=== PATIENT | male | born 1995 | race Two or more races ===

== ENCOUNTER 2022-04-20 19:56 | Emergency (ER) | payer OTHER, SELFPAY ==
[2022-04-20 19:57] VITALS: BP 111/66; PULSE 68; RESP 16; TEMP 37; O2SAT 97; BMI 18.3
--- NOTE | 2022-04-20 21:09 | CT_ITS ---
EXAM: CT ABDOMEN AND PELVIS WITH INTRAVENOUS CONTRAST CLINICAL INDICATION: abdominal pain TECHNIQUE: Helically acquired images were obtained of the abdomen and pelvis with intravenous contrast. This CT exam was performed using one or more of the following dose reduction techniques: automated exposure control, adjustment of the mA and/or kV according to patient size, and/or use of iterative reconstruction technique. This report was created using [employer] report generation technology. CONTRAST: IV 100mL Isovue-370 RADIATION DOSE: CTDIvol = 9.97, 5.08 mGy, DLP = 240.28 mGy-cm. COMPARISON: None. FINDINGS: LOWER THORAX: Unremarkable. Lung bases are clear. No cardiomegaly. No significant pericardial effusion. ABDOMEN: LIVER: Unremarkable. Homogeneous. No focal mass. GALLBLADDER AND BILE DUCTS: Unremarkable. No calcified gallstones. No gallbladder distention or wall edema. No intra- or extrahepatic biliary ductal dilation. PANCREAS: Unremarkable. No focal cystic or solid mass. SPLEEN: Unremarkable. Normal size without focal cystic or solid mass. ADRENALS: Unremarkable. No nodules. KIDNEYS AND URETERS: Unremarkable with the exception of small renal cysts bilaterally, the largest roughly 1 cm in the right posterior upper kidney, no enhancement, and tiny cortical 4 mm cyst of the left kidney. Additional imaging is not required. Normal renal size and position. No hydronephrosis. STOMACH AND BOWEL: Mildly prominent fluid-filled small bowel loops in the mid right and bilateral lower abdomen. Moderate fluid and mild gas in the stomach and duodenum with mild mucosal enhancement of the stomach and fluid-filled duodenum. Suspicion of gastroenteritis. Mild gas and stool in the colon. No significant mesenteric adenopathy. Patent mesenteric vessels. No stomach or bowel distention. PELVIS: APPENDIX: Normal gas filled appendix seen on sagittal images 45 through 55 anterior to the right psoas muscle, also seen on other series. BLADDER: Unremarkable. REPRODUCTIVE: Unremarkable as visualized. No mass. ABDOMEN and PELVIS: INTRAPERITONEAL SPACE: Unremarkable. No ascites or other fluid collection. No free air. BONES/JOINTS: Unremarkable. No suspicious lytic or blastic abnormality. SOFT TISSUES: Unremarkable. No discrete abdominal or pelvic wall hernia. VASCULATURE: Unremarkable. Abdominal aorta is non-dilated. LYMPH NODES: See above. OTHER FINDINGS: None. CT/Abdomen/Pelvis W IV Cont ONLY IMPRESSION: Suspicion of gastroenteritis. Normal appendix. Small renal cysts. Electronically Signed: Sharla Zamorano MD at 23:03 EDT ,
--- NOTE | 2022-04-20 21:28 | EX.ED.DYSGE1 ---
HPI History of Present Illness Chief Complaint: Abd Pain Informant: patient Narrative Narrative: 26-year-old male presenting to the emergency department with a 4-day history of abdominal pain. He describes it as epigastric and feels like gas. He has been trying numerous gas medications without relief. He states that food makes it worse. He denies any diarrhea or vomiting. No fevers. No prior surgeries. He states it hurts to walk. He states he is never had anything like this before. PFSH PFSH Medical History no medical history no medical history Home Medications NK 04/20/22 [History Last Taken Unknown] Allergy/AdvReac Type Severity Reaction Status Date / Time No Known Allergies Allergy Verified 04/20/22 20:00 Surgical History no surgical history no surgical history Social History (Updated 04/20/22 @ 21:[address] Mode Reed, DO) Smoking Status: Current every day smoker tobacco type: cigarettes substance use type: does not use ROS ROS ED Constitutional Constitutional ED: Denies chills or weight loss Eyes Eyes: Denies change in vision or diplopia ENT ENT ED: Denies ear pain, rhinorrhea or sore throat Cardiovascular Cardiovascular: Denies chest pain, orthopnea, palpitations or racing heartbeat Respiratory/Chest Respiratory/Chest: Denies cough, dyspnea or orthopnea Gastrointestinal Gastrointestinal: Reports abdominal pain; Denies constipation, diarrhea, melena, nausea or vomiting Genitourinary Genitourinary ED: Denies dysuria, hematuria or urinary frequency Musculoskeletal Musculoskeletal: Denies arthralgias or myalgias Integumentary Denies abscess or rash Neurologic Neurologic: Denies headache(s) or weakness Psychiatric Psychiatric: Denies anxiety, depression, suicidal ideation or suicidal thoughts Endocrine Endocrinology: Denies polydipsia, polyphagia or polyuria Allergic/Immunologic Allergic/Immunologic ED: Denies mouth swelling, tongue swelling or urticaria EXAM Physical Exam Const Vital Signs: 04/20/22 19:57 04/20/22 21:59 Temperature 98.6 F Temperature Source Temporal Pulse Rate 68 68 Respiratory Rate 16 16 Blood Pressure 111/66 141/84 H Blood Pressure Mean 81 103 Pulse Ox 97 Oxygen Delivery Method Room Air Room Air Positive well nourished and well developed General Appearance ED: well developed HEENT Reports normocephalic, head/scalp atraumatic and moist mucous membranes Eyes PERRL and EOMs intact bilaterally Neck no lymphadenopathy, supple and no JVD Resp normal respiratory effort and clear to auscultation bilaterally Cardio regular rate, regular rhythm and no murmurs GI Auscultation: normoactive bowel sounds Palpation: soft and tender epigastric; Negative for guarding, splenomegaly, mass or rebound tenderness present Back/Spine no CVA tenderness and normal ROM Extremity normal to inspection General Extremety ED: Negative for edema General Extremity: Negative for edema Neuro oriented x3 and CN's II-XII intact bilaterally Sensorium / Orientation: alert Motor Exam: strength 5/5 throughout Psych mental status grossly normal Mood & Affect: Negative for depressed or tearful Skin no rashes or lesions noted and no wounds MDM MDM MDM Narrative Medical decision making narrative: Returns at 8.2. CMP and lipase are normal. CT of the abdomen pelvis was obtained. This was read by radiology reviewed by myself and is suspicious for gastroenteritis. Patient received a GI cocktail and states it really improved his pain. Only placed him on an antacid omeprazole as well and some Bentyl. He is to establish primary care. He does live in [place] so I have some difficulty referring him to places but he states he knows of some places he can try. Lab Data Attestation: I reviewed the patient's lab results. Labs: Laboratory Results - last 24 hr 04/20/22 04/20/22 22:03 22:03 WBC 8.2 RBC 4.73 Hgb 14.2 Hct 43.1 MCV 91.1 MCH 30.0 MCHC 32.9 RDW Std Deviation 45.9 H RDW Coeff of Allyssa 13.6 Plt Count 340 MPV 9.5 Immature Gran % (Auto) 0.400 Neut % (Auto) 61.4 Lymph % (Auto) 30.0 [place] % (Auto) 5.5 Eos % (Auto) 2.1 Baso % (Auto) 0.6 Absolute Neuts (auto) 5.0 Absolute Lymphs (auto) 2.46 Nucleated RBC % 0 Sodium 143 Potassium 3.8 Chloride 109 H Carbon Dioxide 29.0 Anion Gap 5 BUN 13 Creatinine 0.94 Estim Creat Clear Calc 90.83 Est GFR (MDRD) Af Amer 122 Est GFR (MDRD) Non-Af 101 BUN/Creatinine Ratio 13.8 Glucose 88 Calcium 9.3 Total Bilirubin 0.50 AST 20 ALT 28 Alkaline Phosphatase 60 Total Protein 7.1 Albumin 3.6 Globulin 3.5 Albumin/Globulin Ratio 1.0 Lipase 122 Radiography Diagnostic Testing: Clinical Impression(s) from Imaging Studies Abdomen/Pelvis CT 04/20/22 21:09 IMPRESSION: Suspicion of gastroenteritis. Normal appendix. Small renal cysts. Electronically Signed: Sharla Zamorano MD at 23:03 EDT Reading Location ID and State: [address] [place] [address] Tel , Service support , Discharge Plan Triage Chief Complaint: Abd Pain ED Provider: Mode Reed Dx/Rx/DC Orders Clinical Impression: Abdominal pain Prescriptions: No Action NK Primary Care Provider: Care Physician,No Primary Referrals: Care Physician,No Primary [Primary Care Provider] -
[2022-04-20 21:59] VITALS: BP 141/84; PULSE 68; RESP 16
[2022-04-20] MEDS: Ondansetron 4 MG/2 ML Vial IV (22:01)
[2022-04-20 22:11] LABS: Absolute Lymphocyte Count 2.46 X10^3/uL (0.83-4.51); Basophil# 0.05 X10^3/uL; Basophil% 0.6 % (0-1); Eosinophil# 0.17 X10^3/uL; Eosinophils% 2.1 % (0-5); Hematocrit 43.1 % (40-54); Hemoglobin 14.2 g/dL (13.0-16.5); Lymphocyte # 2.46 X10^3/ul (0.83-4.51); Mean Corp Hgb Conc 32.9 g/dL (32-36); Mean Corpuscular Volume 91.1 fL (80-94); Mean Platelet Vol. 9.5 fl (6.2-12.0); Monocyte# 0.45 X10^3/uL; Monocyte% 5.5 % (0-10); NRBC Flagged by Analyzer 0 % (0-5); Neutrophil # 5.03 X10^3/uL (2.7-7.7); Neutrophil % 61.4 % (47-70); Platelet Count 340 K/mm3 (150-450); RBC Distribution Width CV 13.6 % (11.6-14.6); RBC Distribution Width SD 45.9 fl (35.1-43.9); Red Blood Count 4.73 M/mm3 (4.6-6.2); White Blood Count 8.2 K/mm3 (4.4-11.0)
[2022-04-20 22:33] LABS: AST(SGOT) 20 U/L (15-37); Alanine Aminotransfer ALT/SGPT 28 U/L (16-61); Albumin, Serum 3.6 g/dL (3.2-5.0); Alkaline Phosphatase 60 U/L (45-117); Anion Gap 5 (5-15); BUN 13 mg/dL (7-18); BUN/Creat Ratio 13.8 RATIO (10-20); Calcium,Total 9.3 mg/dL (8.5-10.1); Chloride 109 mmol/L (98-107); Creatinine, Serum 0.94 mg/dL (0.70-1.30); EST Glomerular Filtration Rate 101 mL/min (>60); Est Glom Filt Rate - Afr Amer 122 mL/min (>60); Estimated Creatinine Clearance 90.83 ml/min; Globulin 3.5 g/dL (2.2-4.2); Glucose 88 mg/dL (74-106); Lipase 122 U/L (73-393); Potassium 3.8 mmol/L (3.5-5.1); Protein, Total 7.1 g/dL (6.4-8.2); Sodium Level 143 mmol/L (136-145)
[2022-04-20] MEDS: Mag Hydrox/Al Hydrox/Simeth 30 ML UDC PO (22:40)
[2022-04-20 23:28] VITALS: PULSE 87; RESP 18; O2SAT 97
== END 2022-04-20 23:29 | disposition home or self-care (01) ==
PROVIDERS: Emergency Provider Emergency Medicine; Visit Provider Emergency Medicine
DX: R10.13 Epigastric pain (principal); F17.210 Nicotine dependence, cigarettes, uncomplicated
CPT/HCPCS: 74177; 80053; 83690; 85025; 96374; 99283; Q9967; A4216; J2405